=== PATIENT | female | born 1970 | race Hispanic/Latino ===

== ENCOUNTER 2017-08-19 10:36 | Emergency (ER) | payer BC ==
[2017-08-19 11:01] LABS: #Basophils 0.1 thou/uL (0.0-0.2); #Eosinphils 0.1 thou/uL (0.0-0.7); #Monocytes 0.4 thou/uL (0.11-0.59); #Neutrophils 4.3 thou/uL (1.40-6.50); %Basophils 0.7 % (0.0-1.0); %Eosinophils 1.7 % (0.0-10.0); %Lymphocytes 38.1 % (21.0-51.0); %Monocytes 5.4 % (0.0-10.0); %Neutrophils 54.1 % (42.0-75.0); Hemoglobin 15.9 g/dL (12.0-16.0); Mean Corpuscular Hemoglobin 32.2 pg (27.0-31.0); Mean Corpuscular Volume 94.6 fl (81.0-99.0); Mean Platelet Volume 6.8 fL (7.4-10.4); Platelet Count 265 thou/uL (130-400); RBC Distribution Width 12.6 % (11.5-14.5); Red Blood Cell (RBC) Count 4.94 mill/uL (4.20-5.40); White Blood Cell (WBC) Count 7.9 thou/uL (4.8-10.8)
[2017-08-19 11:12] LABS: ALT (SGPT) 38 U/L (8-55); AST (SGOT) 41 U/L (5-34); Albumin 4.1 g/dL (3.5-5.0); Alkaline Phosphatase 101 U/L (40-150); Anion Gap 9 mmol/L (10-20); BUN (Urea Nitrogen) 11 mg/dL (7.0-18.7); Bilirubin, Total 0.6 mg/dL (0.2-1.2); Calc. Creatinine Clearance 0 mL/min (70-130); Calcium 9.5 mg/dL (7.8-10.44); Carbon Dioxide 28 mmol/L (22-29); Chloride 106 mmol/L (98-107); Estimated GFR-MDRD 87; Globulin 3.9 g/dL (2.4-3.5); Glucose 85 mg/dL (70-105); Sodium 139 mmol/L (136-145)
[2017-08-19] MEDS ORDERED: Ketorolac Tromethamine 30 MG/ML VIAL ONE (13:33)
[2017-08-19 13:56] LABS: Bilirubin Negative (Negative); Blood, Urine Large (Negative); Clarity CLOUDY (Clear); Glucose, Urine (Dipstick) Negative (Negative); Leukocyte Small (Negative); Nitrite Negative (Negative); Protein, Urine (Dipstick) Trace mg/dL (Neg-Trace); Specific Gravity, Urine 1.019 (1.002-1.036); Urobilinogen 0.2 mg/dL (0.2-1.0); pH, Urine 6.5 (5.0-9.0)
[2017-08-19 14:12] LABS: Bacteria/HPF 1+ HPF (None Seen); Hyaline Casts/LPF 0-3 HYALINE CAST LPF (0-3 Hyaline); Pathc Cast-AUWi Flag 0.72 (0-2.49)
[2017-08-19 14:13] LABS: Yeast-AUWi Flag 47.9 (0-25.0)
[2017-08-19 14:26] LABS: RBC/HPF 0-3 HPF (0-3)
[2017-08-19 14:27] LABS: Yeast-All Forms None Seen HPF (None Seen)
--- NOTE | 2017-08-19 15:08 | ULT ---
PELVIC ULTRASOUND TRANSABDOMINAL: Date: 08/19/17 Transvaginal ultrasound declined by the patient. This does limit the evaluation. Doppler color flow i maging performed. INDICATION: Pelvic pain, vaginal bleeding. FINDINGS: Prominence of the endometrium is noted at 1.0 cm in thickness. Uterus is mildly prominent in volume, measuring 9.0 cm in length. Doppler evaluation performed, which reveals flow to each ovary. No signif icant free pelvic fluid. Focal hypoechoic region of the left adnexa measures between 3-4 cm in size, which suggests an ovarian cyst, larger than typical for physiologic cyst. IMPRESSION: 1. Prominent sized left adnexal cyst. Six week follow-up pelvic ultrasound is recommended to confirm resolution. 2. Borderline size endometrium. If the patient is postmenopausal, this would be considered abnormal. Otherwise, reassessment at the six week follow-up should be performed to confirm expected resolution for physiologic change. CODE T. POS: [facility]
--- NOTE | 2017-08-19 15:30 | CT ---
NONCONTRAST HEAD CT: Date: 08/19/17 HISTORY: Headache. Worsening pain. COMPARISON: 01/07/15. TECHNIQUE: A noncontrast head CT is performed from the skull base to the skull vertex. FINDINGS: No parenchymal hemorrhage or extra-axial hematoma. No midline shift. Basilar cisterns are patent. Bra in volume is age-appropriate. Cortical restrepo-white matter differentiation is preserved. Ventricles and sulci are patent and symmetric. Calvarium is intact. Adequate aeration of the sinuses and mastoid ai r cells. IMPRESSION: No acute intracranial process. POS: [facility]
== END 2017-08-19 16:13 | disposition home or self-care (01) ==
LOC: ERS 10:36
DX: N95.0 Postmenopausal bleeding (principal); R51 Headache; K90.0 Celiac disease; M81.0 Age-related osteoporosis without current pathological fracture
CPT/HCPCS: 36415; 70450; 76856; 80053; 81003; 81015; 85025; 86850; 86900; 86901; 93976; 96361; 96374; J1885

== ENCOUNTER 2017-08-30 09:27 | Outpatient (CLI) | payer BC | END 2017-08-30 09:28 | disposition home or self-care (01) | LOC: BICMAMMO 09:27 | PROVIDERS: ATTEND Family Medicine | DX: N64.4 Mastodynia (principal) | CPT/HCPCS: 77066; G0279 ==

== ENCOUNTER 2018-01-04 10:38 | Emergency (ER) | payer BC ==
[2018-01-04 11:03] LABS: #Basophils 0.1 thou/uL (0.0-0.2); #Eosinphils 0.1 thou/uL (0.0-0.7); #Lymphocytes 3.2 thou/uL (1.20-3.40); #Monocytes 0.4 thou/uL (0.11-0.59); %Basophils 0.9 % (0.0-1.0); %Eosinophils 2.1 % (0.0-10.0); %Lymphocytes 47.6 % (21.0-51.0); %Monocytes 5.6 % (0.0-10.0); %Neutrophils 43.9 % (42.0-75.0); Mean Corpuscular HGB CONC 35.6 g/dL (32.0-36.0); Mean Corpuscular Hemoglobin 31.8 pg (27.0-31.0); Mean Corpuscular Volume 89.3 fL (78.0-98.0); Mean Platelet Volume 6.1 fL (7.4-10.4); Platelet Count 292 thou/uL (130-400); RBC Distribution Width 12.5 % (11.5-14.5); Red Blood Cell (RBC) Count 5.04 mill/uL (4.20-5.40); White Blood Cell (WBC) Count 6.8 thou/uL (4.8-10.8)
[2018-01-04 11:13] LABS: BHCG - Serum Negative (NEGATIVE); Pregs Control Background? CLEAR/WHITE (CLR/WHITE); Pregs Control Bar Appear? YES (CONTROL BAR)
[2018-01-04 11:38] LABS: Bilirubin Negative (Negative); Clarity Cloudy (Clear); Glucose, Urine (Dipstick) Negative (Negative); Protein, Urine (Dipstick) > or equal to 300 mg/dL (Neg-Trace)
[2018-01-04 11:39] LABS: Nitrite Unable to Interpret (Negative); Urobilinogen UNABLE TO INTERPRET mg/dL (0.2-1.0)
[2018-01-04 11:40] LABS: Blood, Urine Large (Negative); Leukocyte Small (Negative)
[2018-01-04 11:43] LABS: Specific Gravity, Urine 1.017 (1.002-1.036); pH, Urine 7.5 (5.0-9.0)
[2018-01-04 11:45] LABS: RBC/HPF GREATER THAN 50-TNTC HPF (0-3)
[2018-01-04 11:46] LABS: Bacteria/HPF 1+ HPF (None Seen); Hyaline Casts/LPF NONE SEEN LPF (0-3 Hyaline)
[2018-01-04 12:08] LABS: Prothrombin Time 13.2 SEC (12.0-14.7)
[2018-01-04 12:23] LABS: Anion Gap 8 mmol/L (10-20); BUN (Urea Nitrogen) 8 mg/dL (7.0-18.7); Calc. Creatinine Clearance 0 mL/min (70-130); Calcium 8.9 mg/dL (7.8-10.44); Carbon Dioxide 25 mmol/L (22-29); Chloride 109 mmol/L (98-107); Estimated GFR-MDRD Greater than 90; Glucose 83 mg/dL (70-105); Potassium 3.6 mmol/L (3.5-5.1); Sodium 138 mmol/L (136-145)
--- NOTE | 2018-01-04 13:18 | ULT ---
PELVIC ULTRASOUND WITH DOPPLER: (TRANSABDOMINAL, TRANSVAGINAL, ROME SCALE, COLOR FLOW AND SPECTRAL DOPPLER) Date: 01/04/18 HISTORY: Vaginal bleeding and left-sided pelvic pain. FINDINGS: The uterus measures 10.0 x 4.7 x 5.9 cm without focal mass or endometrial fluid. The endometrium jaky ures 2.0 cm in thickness. The right ovary measures 2.6 x 1.0 x 1.6 cm and the left ovary measures 1.7 x 1.5 x 1.8 cm. No adnexa l mass or free fluid in the cul-de-sac seen. Nabothian cysts are present in the cervix. Flow is demon strated to both ovaries. IMPRESSION: Endometrial thickness is 2.0 cm, otherwise unremarkable exam. POS: [facility]
--- NOTE | 2018-01-04 14:49 | CT ---
CT ABDOMEN AND PELVIS: Date: 01/04/18 HISTORY: Abdominal pain, vaginal bleeding. FINDINGS: Comparison made with exams of 09/10/16 and 07/21/11. The lung bases are clear. There is fatty infiltration of the liver. No hepatic mass is seen. No calci fied gallstones are noted. The pancreas, adrenal glands, and kidneys are normal. The spleen measures 14.0 cm in length. A small hiatal hernia is present. No free air or free fluid is seen in the abdomen or pelvis. A periportal lymph node measuring 9.0 mm in short axis diameter is seen. No mesenteric or retroperitoneal lymphadenopathy is seen. There is no evidence of aneurysmal dilatation of the abdominal aorta. There is colonic diverticulosis. No eviden ce of diverticulitis is seen. Uterus and ovaries are noted. There is no evidence of aneurysmal dilata tion of the abdominal aorta. There are degenerative changes in the spine. No abnormally distended flu id-filled appendix is seen IMPRESSION: 1. Fatty liver. 2. Mild splenomegaly. 3. Small hiatal hernia. 4. Colonic diverticulosis. POS: [facility]
== END 2018-01-04 13:39 | disposition home or self-care (01) ==
LOC: ERS 10:38
DX: N93.8 Other specified abnormal uterine and vaginal bleeding (principal); N39.0 Urinary tract infection, site not specified; M81.0 Age-related osteoporosis without current pathological fracture
CPT/HCPCS: 36415; 74177; 76856; 80048; 81003; 81015; 84703; 85025; 85610; 96361; 96374; J2270

== ENCOUNTER 2018-06-10 13:02 | Emergency (ER) | payer BC ==
[2018-06-10] MEDS ORDERED: Dexamethasone 4 mg/ml Vial ONE (13:28)
[2018-06-10 13:53] LABS: Bilirubin Negative (Negative); Blood, Urine Large (Negative); Clarity CLOUDY (Clear); Glucose, Urine (Dipstick) Negative (Negative); Leukocyte Large (Negative); Nitrite Positive (Negative); Protein, Urine (Dipstick) 30 mg/dL (Neg-Trace); Specific Gravity, Urine 1.015 (1.002-1.036); pH, Urine 6.5 (5.0-9.0)
[2018-06-10 13:56] LABS: Bacteria/HPF 4+ HPF (None Seen); Hyaline Casts/LPF 0-3 HYALINE CAST LPF (0-3 Hyaline); Pathc Cast-AUWi Flag 0.37 (0-2.49); RBC/HPF GREATER THAN 50-TNTC HPF (0-3)
[2018-06-10 13:57] LABS: #Basophils 0.1 thou/uL (0.0-0.2); #Eosinphils 0.1 thou/uL (0.0-0.7); #Lymphocytes 2.6 thou/uL (1.20-3.40); #Monocytes 0.5 thou/uL (0.11-0.59); #Neutrophils 4.8 thou/uL (1.40-6.50); %Basophils 0.7 % (0.0-1.0); %Eosinophils 1.6 % (0.0-10.0); %Lymphocytes 32.1 % (21.0-51.0); %Monocytes 5.8 % (0.0-10.0); %Neutrophils 59.8 % (42.0-75.0); Hemoglobin 16.7 g/dL (12.0-16.0); Mean Corpuscular HGB CONC 34.1 g/dL (32.0-36.0); Mean Corpuscular Hemoglobin 30.9 pg (27.0-31.0); Mean Corpuscular Volume 90.7 fL (78.0-98.0); Mean Platelet Volume 6.7 fL (7.4-10.4); Platelet Count 252 thou/uL (130-400); RBC Distribution Width 12.5 % (11.5-14.5); White Blood Cell (WBC) Count 8.1 thou/uL (4.8-10.8)
[2018-06-10 14:18] LABS: ALT (SGPT) 23 U/L (8-55); AST (SGOT) 25 U/L (5-34); Albumin 4.2 g/dL (3.5-5.0); Alkaline Phosphatase 129 U/L (40-150); Anion Gap 15 mmol/L (10-20); BUN (Urea Nitrogen) 9 mg/dL (7.0-18.7); Bilirubin, Total 0.8 mg/dL (0.2-1.2); Calc. Creatinine Clearance 0 mL/min (70-130); Calcium 9.8 mg/dL (7.8-10.44); Carbon Dioxide 23 mmol/L (22-29); Chloride 105 mmol/L (98-107); Estimated GFR-MDRD 80; Globulin 4.2 g/dL (2.4-3.5); Glucose 88 mg/dL (70-105); Potassium 3.5 mmol/L (3.5-5.1); Protein, Total 8.4 g/dL (6.0-8.3); Sodium 139 mmol/L (136-145)
--- NOTE | 2018-06-10 15:55 | CT ---
CT LUMBAR SPINE NONCONTRAST 06/10/18 at 1:48 p.m. HISTORY: 47-year-old female with low back pain and right lumbar radiculopathy. FINDINGS: Moderate vacuum joint phenomenon, mild osteophytosis and moderate sclerosis at bilateral Si joints, s ymmetrically. Five nonribbearing lumbar type vertebrae. Vertebral body heights and disc spaces are maintained. No s pondylolysis or spondylolisthesis. No high grade neural foraminal stenosis or adenike nerve root imping ement, at any level. Spinal canal is congenitally slightly small in caliber on a developmental basis due to congenitally short pedicles, especially at the lower levels, and especially at L4-5 and L5. N o high grade disc space narrowing any level. No scoliosis. Mild disc bulge at L4-5 with mild to moder ate lateral recess stenosis bilaterally at that level. No high grade degenerative facet changes. IMPRESSION: 1. Moderate osteoarthrosis of the bilateral sacroiliac joints. 2. No high grade lumbar spondylosis. 3. Central spinal canal stenosis at L5 and L4-5 with lateral recess stenosis there, mostly on a developmental basis plus minimal disc bulge. 4. Otherwise no major pathology in the rest of the lumbar spine. POS: [facility]
== END 2018-06-10 14:45 | disposition home or self-care (01) ==
LOC: ERS 13:02
DX: M51.36 Other intervertebral disc degeneration, lumbar region (principal); N30.00 Acute cystitis without hematuria; M81.0 Age-related osteoporosis without current pathological fracture
CPT/HCPCS: 72131; 80053; 81003; 81015; 85025; 87077; 87086; 87186; 96374; J1100

== ENCOUNTER 2018-06-22 20:27 | Emergency (ER) | payer BC ==
[2018-06-22 20:52] LABS: #Basophils 0.1 thou/uL (0.0-0.2); #Eosinphils 0.4 thou/uL (0.0-0.7); #Lymphocytes 3.3 thou/uL (1.20-3.40); #Monocytes 0.6 thou/uL (0.11-0.59); #Neutrophils 4.6 thou/uL (1.40-6.50); %Basophils 0.6 % (0.0-1.0); %Eosinophils 4.3 % (0.0-10.0); %Lymphocytes 36.8 % (21.0-51.0); %Monocytes 6.3 % (0.0-10.0); %Neutrophils 52.1 % (42.0-75.0); Hemoglobin 15.6 g/dL (12.0-16.0); Mean Corpuscular HGB CONC 33.8 g/dL (32.0-36.0); Mean Corpuscular Hemoglobin 30.6 pg (27.0-31.0); Mean Corpuscular Volume 90.4 fL (78.0-98.0); Mean Platelet Volume 6.9 fL (7.4-10.4); Platelet Count 252 thou/uL (130-400); RBC Distribution Width 12.4 % (11.5-14.5); White Blood Cell (WBC) Count 8.9 thou/uL (4.8-10.8)
[2018-06-22] MEDS ORDERED: Ketorolac Tromethamine 30 MG/ML VIAL ONE (20:59)
[2018-06-22 21:00] LABS: BHCG - Serum Negative (NEGATIVE); Pregs Control Background? CLEAR/WHITE (CLR/WHITE); Pregs Control Bar Appear? YES (CONTROL BAR)
--- NOTE | 2018-06-22 21:28 | RAD ---
AP VIEW CHEST: 06/22/18 HISTORY: Chest pain. AP view chest obtained on 06/22/18. Comparison made to previous exam from 10/12/11. AP view chest demonstrates the lungs to be well aerated. No evidence of active intrathoracic disease seen. No evidence of effusions, pneumonia or pneumothorax seen. IMPRESSION: Unremarkable AP view chest. POS: [facility]
[2018-06-22 21:40] LABS: ALT (SGPT) 30 U/L (8-55); AST (SGOT) 29 U/L (5-34); Alkaline Phosphatase 116 U/L (40-150); Anion Gap 14 mmol/L (10-20); BUN (Urea Nitrogen) 9 mg/dL (7.0-18.7); Bilirubin, Total 0.5 mg/dL (0.2-1.2); CK (CPK) 65 U/L (29-168); Calc. Creatinine Clearance 0 mL/min (70-130); Calcium 9.4 mg/dL (7.8-10.44); Carbon Dioxide 26 mmol/L (22-29); Chloride 105 mmol/L (98-107); Estimated GFR-MDRD 78; Globulin 3.8 g/dL (2.4-3.5); Glucose 90 mg/dL (70-105); Potassium 3.5 mmol/L (3.5-5.1); Protein, Total 7.8 g/dL (6.0-8.3); Sodium 141 mmol/L (136-145)
== END 2018-06-22 22:17 | disposition home or self-care (01) ==
LOC: ERS 20:27
DX: R07.89 Other chest pain (principal); M81.0 Age-related osteoporosis without current pathological fracture
CPT/HCPCS: 71045; 80053; 82550; 84484; 84703; 85025; 93005; 96374; J1885

== ENCOUNTER 2018-08-03 16:48 | Emergency (ER) | payer BC ==
[2018-08-03] MEDS ORDERED: Acetaminophen 325 MG TAB ONE (18:53)
--- NOTE | 2018-08-03 19:19 | RAD ---
LEFT HIP TWO VIEW 08/03/18 HISTORY: Pain. COMPARISON: None. FINDINGS: No fracture. No malalignment. Obturator ring is intact. Soft tissues are unremarkable. IMPRESSION: No acute fracture or malalignment. POS: [facility]
== END 2018-08-03 20:30 | disposition home or self-care (01) ==
LOC: ERS 16:48
DX: M25.552 Pain in left hip (principal); M81.0 Age-related osteoporosis without current pathological fracture

== ENCOUNTER 2018-10-25 08:08 | Outpatient (CLI) | payer BC ==
--- NOTE | 2018-10-25 10:14 | RAD ---
LUMBAR SPINE TWO VIEWS: HISTORY: Low back pain. COMPARISON: Radiographs from 2015. FINDINGS: There are five vxi-foy-pikabjr lumbar-type vertebrae. No acute fracture or malalignment. No listhes is. No significant joint or disk space narrowing. The paraspinal soft tissues are unremarkable. IMPRESSION: Normal examination of the lumbar spine. POS: [facility]
== END 2018-10-25 08:09 | disposition home or self-care (01) ==
LOC: BICRAD 08:08
PROVIDERS: ATTEND Family Medicine
DX: M54.5 Low back pain (principal)
CPT/HCPCS: 72100

== ENCOUNTER 2018-11-17 12:28 | Outpatient (CLI) | payer BC ==
--- NOTE | 2018-11-17 13:48 | MRI ---
MRI Lumbar Spine Noncontrast: HISTORY: Low back pain with pain and numbness radiating to legs. Symptoms been present for approximately 4 mon ths. COMPARISON: CT lumbar spine on 06/10/2018. FINDINGS: The visualized retroperitoneal structures demonstrate a normal appearance. Conus medullaris is normal in morphology and terminates at the L1 level. L1-2: There is no disc bulge or disc herniation. Central spinal canal and neural foramina are patent. L2-3: There is no disc bulge or disc herniation. Central spinal canal and neural foramina are patent. L3-4: There is no disc bulge or disc herniation. Central spinal canal and neural foramina are patent. There are facet degenerative changes on the left at this level. There is mild edema within the facets on fluid sensitive sequence likely related to the degenerative changes. L4-5: There is no disc bulge or disc herniation. Central spinal canal and neural foramina are patent. L5-S1: There is no disc bulge or disc herniation. Central spinal canal and neural foramina are patent . Mild facet degenerative changes are seen. IMPRESSION: 1. No significant central canal or neural foraminal narrowing is seen at any level. 2. Facet degenerative changes with edema seen within the facets on the left at the L3-4 level likely attributable to the degenerative changes.
== END 2018-11-17 12:29 | disposition home or self-care (01) ==
LOC: BICMRI 12:28
PROVIDERS: ATTEND Family Medicine
DX: M54.5 Low back pain (principal); M47.816 Spondylosis without myelopathy or radiculopathy, lumbar region; R60.0 Localized edema
CPT/HCPCS: 72148

== ENCOUNTER 2019-06-06 12:46 | Emergency (ER) | payer BC ==
[2019-06-06 13:25] LABS: Bacteria/HPF 3+ HPF (None Seen); Bilirubin Negative (Negative); Blood, Urine 1+ (Negative); Clarity Turbid (Clear); Glucose, Urine (Dipstick) Normal (Negative); Leukocyte 500 Leu/uL (Negative); Nitrite 2+ (Negative); Protein, Urine (Dipstick) 10 mg/dL (Neg-Trace); Urobilinogen Normal mg/dL (Less than 2); WBC/HPF 21-50 HPF (0-3)
== END 2019-06-06 14:42 | disposition home or self-care (01) ==
LOC: ERS 12:46
DX: S39.012A Strain of muscle, fascia and tendon of lower back, initial encounter (principal); N39.0 Urinary tract infection, site not specified; F91.3 Oppositional defiant disorder; X58.XXXA Exposure to other specified factors, initial encounter
CPT/HCPCS: 81003; 81015; 99283

== ENCOUNTER 2019-06-23 17:50 | Emergency (ER) | payer BC | END 2019-06-23 18:54 | disposition home or self-care (01) | LOC: ERS 17:50 | DX: B34.9 Viral infection, unspecified (principal); M81.0 Age-related osteoporosis without current pathological fracture | CPT/HCPCS: 87081; 87430; 87804; 99283 ==

== ENCOUNTER 2019-07-24 10:10 | Emergency (ER) | payer BC ==
[2019-07-24 10:42] LABS: Bilirubin Moderate (Negative); Blood, Urine Large (Negative); Glucose, Urine (Dipstick) Negative (Negative); Leukocyte Negative (Negative); Protein, Urine (Dipstick) > or equal to 300 mg/dL (Neg-Trace)
[2019-07-24 10:44] LABS: Clarity Cloudy (Clear); Nitrite Negative (Negative)
[2019-07-24 10:46] LABS: #Basophils 0.1 thou/uL (0.0-0.2); #Eosinphils 0.1 thou/uL (0.0-0.7); #Lymphocytes 2.1 thou/uL (1.20-3.40); #Monocytes 0.4 thou/uL (0.11-0.59); #Neutrophils 3.8 thou/uL (1.40-6.50); %Basophils 1.7 % (0.0-1.0); %Eosinophils 1.6 % (0.0-10.0); %Lymphocytes 32.4 % (21.0-51.0); %Monocytes 6.5 % (0.0-10.0); %Neutrophils 57.8 % (42.0-75.0); Hemoglobin 16.5 g/dL (12.0-16.0); Mean Corpuscular Hemoglobin 30.7 pg (27.0-31.0); Mean Corpuscular Volume 93.1 fL (78.0-98.0); Mean Platelet Volume 6.9 fL (7.4-10.4); Platelet Count 269 thou/uL (130-400); Red Blood Cell (RBC) Count 5.37 mill/uL (4.20-5.40); White Blood Cell (WBC) Count 6.6 thou/uL (4.8-10.8)
[2019-07-24 10:48] LABS: RBC/HPF Greater than 50 HPF (0-3)
[2019-07-24 10:49] LABS: Bacteria/HPF 1+ HPF (None Seen)
[2019-07-24 10:59] LABS: BHCG - Serum Negative (NEGATIVE); Pregs Control Background? CLEAR/WHITE (CLR/WHITE); Pregs Control Bar Appear? YES (CONTROL BAR)
--- NOTE | 2019-07-24 11:52 | CT ---
Exam: Abdomen CT without contrast Pelvic CT without contrast HISTORY: Hematuria COMPARISON: 08/27/2026 FINDINGS: Abdomen CT: Lung bases:Clear Heart size: Normal heart size. No significant pericardial fluid. Aorta: Visualized aorta has a normal caliber. No periaortic fat stranding Solid organs: Limited evaluation of the solid organs by the absence of IV contrast. There is heteroge neous attenuation of the liver compatible with areas of fatty sparing in fatty infiltration. There is atrophy of the head of the pancreas and to lesser extent the body of the pancreas. Grossly the spl een and adrenal glands are unremarkable. Lymph nodes: Nonspecific mildly enlarged. Pancreatic lymph nodes. 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 Gallbladder: Unremarkable Mesentery: No mass, lymphadenopathy, free air or free fluid. Scattered nonspecific abdominal mesenter ic lymph nodes. Kidneys: Nonobstructing punctate calcification in in the right renal pelvis. Bilaterally no hydroneph rosis or perinephric fat stranding. Bilateral ureters have a normal caliber. No hydroureter, periureteral fat stranding or ureterolithiasis. Alimentary canal: Limited evaluation by the absence of oral contrast. No evidence of small bowel obst ruction. Unremarkable ileocecal junction. Scattered fecal material in a nondistended, nondilated colon. Occasional diverticulum. No diverticulitis. Appendix is not appreciated. Nevertheless, no infl ammation at the cecal apex. CT PELVIS: No mass, adenopathy, free air or free fluid. Uterus and right adnexal are grossly unremarkable. Sple lynda hypodensity emanating from the left adnexa measuring 2.0 x 1.9 cm compatible with a slightly complex left ovarian follicle. Urinary bladder: Unremarkable. Osseous structures: No lytic or blastic lesions IMPRESSION: 1. Nonobstructing punctate calcification in the right renal pelvis. Bilaterally no obstructive uropat hy. 2. Complex left ovarian follicle. Follow-up ultrasound in 6 weeks to ensure resolution. 3. Nonspecific peripancreatic lymphadenopathy. Correlate clinically.
[2019-07-24 13:07] LABS: ALT (SGPT) 18 U/L (8-55); AST (SGOT) 22 U/L (5-34); Albumin 3.9 g/dL (3.5-5.0); Alkaline Phosphatase 111 U/L (40-110); Anion Gap 13 mmol/L (10-20); BUN (Urea Nitrogen) 9 mg/dL (7.0-18.7); Bilirubin, Total 0.8 mg/dL (0.2-1.2); Calc. Creatinine Clearance 0 mL/min (70-130); Carbon Dioxide 27 mmol/L (22-29); Chloride 105 mmol/L (98-107); Estimated GFR-MDRD 73; Globulin 3.4 g/dL (2.4-3.5); Glucose 87 mg/dL (70-105); Potassium 3.7 mmol/L (3.5-5.1); Protein, Total 7.3 g/dL (6.0-8.3); Sodium 141 mmol/L (136-145)
[2019-07-24 13:18] LABS: Calcium 9.1 mg/dL (7.8-10.44)
== END 2019-07-24 13:26 | disposition home or self-care (01) ==
LOC: ERS 10:10
DX: N83.202 Unspecified ovarian cyst, left side (principal); N93.9 Abnormal uterine and vaginal bleeding, unspecified; R59.0 Localized enlarged lymph nodes; M81.0 Age-related osteoporosis without current pathological fracture
CPT/HCPCS: 36415; 74176; 80053; 81003; 81015; 83690; 84703; 85025

== ENCOUNTER 2019-07-25 21:38 | Emergency (ER) | payer BC ==
[2019-07-25 22:08] LABS: Bilirubin Negative (Negative); Blood, Urine 3+ (Negative); Clarity Extra Turbid (Clear); Glucose, Urine (Dipstick) Normal (Negative); Leukocyte 25 Leu/uL (Negative); Nitrite Negative (Negative); Protein, Urine (Dipstick) 50 mg/dL (Neg-Trace); RBC/HPF Greater than 50 HPF (0-3); Urobilinogen Normal mg/dL (Less than 2)
[2019-07-25 22:18] LABS: Bacteria/HPF 2+ HPF (None Seen)
[2019-07-25] MEDS ORDERED: Morphine 4 MG/ML VIAL ONE (23:01)
[2019-07-25] MEDS ORDERED: Ondansetron PF 4 MG/2 ML Vial ONE (23:01)
[2019-07-25 23:30] LABS: #Eosinphils 0.1 thou/uL (0.0-0.7); #Lymphocytes 2.7 thou/uL (1.20-3.40); #Monocytes 0.6 thou/uL (0.11-0.59); #Neutrophils 4.9 thou/uL (1.40-6.50); %Eosinophils 1.3 % (0.0-10.0); %Lymphocytes 32.9 % (21.0-51.0); %Monocytes 6.9 % (0.0-10.0); Hemoglobin 15.2 g/dL (12.0-16.0); Mean Corpuscular Hemoglobin 31.1 pg (27.0-31.0); Mean Corpuscular Volume 91.7 fL (78.0-98.0); Mean Platelet Volume 6.7 fL (7.4-10.4); Platelet Count 253 thou/uL (130-400); RBC Distribution Width 12.8 % (11.5-14.5); Red Blood Cell (RBC) Count 4.87 mill/uL (4.20-5.40); White Blood Cell (WBC) Count 8.3 thou/uL (4.8-10.8)
[2019-07-25 23:55] LABS: Pregnancy Test - Urine (BHCG) Negative (Negative); Pregu Control Background? CLEAR/WHITE (CLR/WHITE); Pregu Control Bar Appear? YES (CONTROL BAR); Specific Gravity 1.015 (1.002-1.036)
[2019-07-25 23:56] LABS: ALT (SGPT) 16 U/L (8-55); AST (SGOT) 21 U/L (5-34); Albumin 3.7 g/dL (3.5-5.0); Alkaline Phosphatase 98 U/L (40-110); Anion Gap 11 mmol/L (10-20); BUN (Urea Nitrogen) 10 mg/dL (7.0-18.7); Bilirubin, Total 0.4 mg/dL (0.2-1.2); Calc. Creatinine Clearance 0 mL/min (70-130); Calcium 9.2 mg/dL (7.8-10.44); Carbon Dioxide 25 mmol/L (22-29); Chloride 106 mmol/L (98-107); Estimated GFR-MDRD 85; Globulin 3.4 g/dL (2.4-3.5); Glucose 89 mg/dL (70-105); Lipase 16 U/L (8-78); Potassium 3.6 mmol/L (3.5-5.1); Protein, Total 7.1 g/dL (6.0-8.3); Sodium 138 mmol/L (136-145)
== END 2019-07-26 01:31 | disposition home or self-care (01) ==
LOC: ERS 21:38
DX: N93.9 Abnormal uterine and vaginal bleeding, unspecified (principal); R10.811 Right upper quadrant abdominal tenderness; R10.817 Generalized abdominal tenderness; M81.0 Age-related osteoporosis without current pathological fracture
CPT/HCPCS: 36415; 80053; 81003; 81015; 81025; 83690; 85025; 96374; 96375; J2270; J2405

== ENCOUNTER 2019-11-01 15:57 | Observation (INO) | payer BC ==
--- NOTE | 2019-11-01 16:23 | RAD ---
EXAM: CHEST ONE VIEW PORTABLE: 11/01/19 HISTORY: Chest pain. COMPARISON: 06/22/18. FINDINGS: Heart size is normal. The lungs are clear. No confluent pneumonia, overt edema, pleural effusion or o ther acute process. IMPRESSION: No acute intrathoracic disease. Stable exam. POS: [facility]
[2019-11-01] MEDS ORDERED: Clopidogrel Bisulfate 75 MG TAB ONE (16:43)
[2019-11-01] MEDS ORDERED: Acetaminophen 500 MG TAB ONE (17:11)
[2019-11-01 17:18] LABS: #Basophils 0.1 thou/uL (0.0-0.2); #Eosinphils 0.1 thou/uL (0.0-0.7); #Lymphocytes 2.5 thou/uL (1.20-3.40); #Monocytes 0.5 thou/uL (0.11-0.59); #Neutrophils 4.9 thou/uL (1.40-6.50); %Basophils 0.7 % (0.0-1.0); %Eosinophils 1.7 % (0.0-10.0); %Lymphocytes 30.5 % (21.0-51.0); %Monocytes 6.6 % (0.0-10.0); %Neutrophils 60.4 % (42.0-75.0); Hemoglobin 15.6 g/dL (12.0-16.0); Mean Corpuscular HGB CONC 34.8 g/dL (32.0-36.0); Mean Corpuscular Hemoglobin 31.7 pg (27.0-31.0); Mean Platelet Volume 6.9 fL (7.4-10.4); Platelet Count 257 thou/uL (130-400); RBC Distribution Width 12.6 % (11.5-14.5); Red Blood Cell (RBC) Count 4.91 mill/uL (4.20-5.40); White Blood Cell (WBC) Count 8.1 thou/uL (4.8-10.8)
[2019-11-01 17:47] LABS: ALT (SGPT) 22 U/L (8-55); AST (SGOT) 25 U/L (5-34); Albumin 3.7 g/dL (3.5-5.0); Alkaline Phosphatase 96 U/L (40-110); Anion Gap 10 mmol/L (10-20); BUN (Urea Nitrogen) 10 mg/dL (7.0-18.7); Bilirubin, Total 0.4 mg/dL (0.2-1.2); Calc. Creatinine Clearance 0 mL/min (70-130); Calcium 8.7 mg/dL (7.8-10.44); Carbon Dioxide 26 mmol/L (22-29); Chloride 105 mmol/L (98-107); Estimated GFR-MDRD 81; Globulin 3.5 g/dL (2.4-3.5); Glucose 97 mg/dL (70-105); Lipase 18 U/L (8-78); Potassium 3.4 mmol/L (3.5-5.1); Protein, Total 7.2 g/dL (6.0-8.3); Sodium 138 mmol/L (136-145)
[2019-11-01] MEDS ORDERED: Ondansetron PF 4 MG/2 ML Vial ONE (18:08)
--- NOTE | 2019-11-01 18:15 | PDOC.FPRHP ---
- History of Present Illness Chief Complaint: Chest Pain History of Present Illness: Pt is a 49 yo female with no significant cardiac medical history who presents with atypical chest pain. Pain started at rest, initially sharp in nature, and radiated down her L arm at 1300. Episodes of pain are dull as well on the left sternal border. Pain lasts 5 mins then remits for 5 mins. She had chest pain during exam and was being given morphine, nitro paste. Pain reproducible with touch. No cardiac history. Denies tobacco ever but in clinic chart she is noted to have some sort of history. Denies drugs, alcohol. No coronary disease in family. PCP: [facility] - Allergies/Adverse Reactions Allergies Allergy/AdvReac Type Severity Reaction Status Date / Time etodolac [From [facility]] Allergy Verified 11/01/19 22:19 - Home Medications Medication Instructions Recorded Confirmed Type No Known 11/01/19 11/01/19 History - History PMHx: obese, celiac, AUB, fatty liver PSHx: hiatal hernia, appendectomy, bilateral tubal ligation FHx: Father - HTN; Sister - DM Social: denies tobacco, alcohol, drugs, has 7 children - Review of Systems General: denies: fever/chills, weight/appetite/sleep changes Eyes: denies: eye pain, vision changes ENT: denies: nasal congestion, rhinorrhea Respiratory: denies: cough, shortness of breath Cardiovascular: reports: chest pain. denies: palpitation, edema Gastrointestinal: reports: nausea. denies: vomiting, diarrhea, constipation Genitourinary: denies: dysuria, polyuria Skin: denies: rashes, lesions Musculoskeletal: reports: pain. denies: tenderness Neurological: reports: weakness. denies: numbness, seizure Psychological: denies: anxiety, depression - Vital signs BP: 123/94 HR: 81 RR: 20 Tmax: 98.2 Pox: 95% on RA Wt: 108 kg - Physical Exam Constitutional: NAD, awake, alert and oriented HEENT: PERRLA, EOMI Neck: FROM, no JVD Chest: no lesions -Chest: tender to palpation in L chest Heart: RRR, normal S1/S2, pulses present, no edema Lungs: CTAB, no respiratory distress, good air movement Abdomen: soft, non-tender, bowel sounds present Neurological: no focal deficit, CN II-XII intact Skin: no rash/lesions, capillary refill <2 seconds Heme/Lymphatic: no purpura, no petechia Psychiatric: normal mood and affect, good judgment and insight FMR H&P: Results - Labs Result Diagrams: 11/01/19 17:09 11/01/19 17:10 Lab results: WBC 8.1 thou/uL (4.8-10.8) 11/01/19 17:09 Hgb 15.6 g/dL (12.0-16.0) 11/01/19 17:09 Hct 44.7 % (36.0-47.0) 11/01/19 17:09 MCV 91.0 fL (78.0-98.0) 11/01/19 17:09 Plt Count 257 thou/uL (130-400) 11/01/19 17:09 Neutrophils % 60.4 % (42.0-75.0) 11/01/19 17:09 Sodium 138 mmol/L (136-145) 11/01/19 17:10 Potassium 3.4 mmol/L (3.5-5.1) L 11/01/19 17:10 Chloride 105 mmol/L (98-107) 11/01/19 17:10 Carbon Dioxide 26 mmol/L (22-29) 11/01/19 17:10 BUN 10 mg/dL (7.0-18.7) 11/01/19 17:10 Creatinine 0.76 mg/dL (0.6-1.1) 11/01/19 17:10 Glucose 97 mg/dL (70-105) 11/01/19 17:10 Calcium 8.7 mg/dL (7.8-10.44) 11/01/19 17:10 Total Bilirubin 0.4 mg/dL (0.2-1.2) 11/01/19 17:10 AST 25 U/L (5-34) 11/01/19 17:10 ALT 22 U/L (8-55) 11/01/19 17:10 Alkaline Phosphatase 96 U/L (40-110) 11/01/19 17:10 Serum Total Protein 7.2 g/dL (6.0-8.3) 11/01/19 17:10 Albumin 3.7 g/dL (3.5-5.0) 11/01/19 17:10 Lipase 18 U/L (8-78) 11/01/19 17:10 - EKG Interpretation EKG: NSR, V5/V6 flattened twave - Radiology Interpretation Chest x-ray Status: image reviewed by me, report reviewed by me Additional comment: no acute abnormalities FMR H&P: A/P - Problem List (1) Atypical chest pain Current Visit: Yes Status: Acute Code(s): R07.89 - OTHER CHEST PAIN (2) Celiac disease Current Visit: Yes Status: Acute Code(s): K90.0 - CELIAC DISEASE (3) Osteoarthritis Current Visit: Yes Status: Acute Code(s): M19.90 - UNSPECIFIED OSTEOARTHRITIS, UNSPECIFIED SITE - Plan Pt is a 49 yo here for: # Atypical Chest Pain: Heart Score - trend trops, initial negative - lipid panel pending - seems to be more MSK in nature - cardiac stress test tomorrow - plavix given in ED, started on nitro paste, given morphine - tele monitoring # Celiac disease - monitor, no flare Dispo: admit to tele, obs Fluids: SL Diet: NPO midnight Code: Full VTE: lovenox FMR H&P: Upper Level - Plan Date/Time: 11/01/191814 I, Donald Sheppard MD, have evaluated this patient and agree with findings/plan as outlined by athletic training internship resident. Pertinent changes/additions are listed here. Micah Liu is a 49 year old F with a PMH of Fatty liver disease, celiac disease, DJD who was admitted for chest pain. Pain started today, located substernal and left side of chest with radiation to the left arm. Denies associated diaphoresis, n/v, dyspnea. Pain started at rest and patient states that is has been fairly constant and has not improved since admission. Currently, rates it as a 6/10 pain. Minimal improvement with medications given in ED. No known cardiac history and she has never had a stress test done. Denies tobacco, drugs, alcohol use. Denies having pain like this in the past. In the ED, trop was 0.01, EKG showed NSR, HR 97, prolonged QTc. CBC and CMP were unremarkable. CXR showed no acute cardiopulmonary findings. On exam, RRR no murmurs, some ttp over chest well, lungs CTAB. No LE edema. Admitting patient to obs tele for ACS r/o. Continuous cardiac monitoring and trend cardiac enzymes. ASA and statin, nitro prn. Stress test in AM, NPO at 0000. Please see athletic training internship note above for full H&P, which I have reviewed and agree with.
[2019-11-01] MEDS ORDERED: Nitroglycerin 2% Ointment 1 INCH/1 GM Packet ONE (18:31)
[2019-11-01] MEDS ORDERED: Morphine 4 MG/ML VIAL ONE (18:31)
[2019-11-01 22:26] LABS: Troponin I Less than 0.010 ng/mL (< 0.028)
[2019-11-01 22:33] VITALS: BMI 46.1
[2019-11-02 01:49] LABS: Troponin I Less than 0.010 ng/mL (< 0.028)
[2019-11-02 04:41] LABS: Anion Gap 10 mmol/L (10-20); BUN (Urea Nitrogen) 9 mg/dL (7.0-18.7); Calc. Creatinine Clearance 157 mL/min (70-130); Calcium 8.7 mg/dL (7.8-10.44); Carbon Dioxide 26 mmol/L (22-29); Cardiac Risk 4.2 (Less than 4.5); Chloride 106 mmol/L (98-107); Cholesterol 189 mg/dl (< 200 Desired); Estimated GFR-MDRD 86; Glucose 111 mg/dL (70-105); HDL Cholesterol 45 mg/dL (>60 Neg Risk); LDL Cholesterol, Calculated 126 mg/dL; Potassium 3.3 mmol/L (3.5-5.1); Sodium 139 mmol/L (136-145); Triglycerides 90 mg/dL (Less than 150)
--- NOTE | 2019-11-02 06:45 | PDOC.FM ---
- Subjective Subjective: Pt complaining of epigastric and chest pain this morning. Causing nausea and dyspepsia. No events on tele monitoring overnight. Pt notes hx of gastric ulcer in the past but denies it feeling similar to her current episode. Discussed plan for stress test today and pt is in agreement. - Objective Vital Signs & Weight: Vital Signs (12 hours) Temp Pulse Resp BP Pulse Ox 11/02/19 03:18 97.9 F 63 18 93/50 L 97 11/01/19 21:05 98.0 F 78 18 126/61 96 Weight Weight 106.503 kg I&O: 10/31/19 11/01/19 11/02/19 06:59 06:59 06:59 Intake Total 120 Balance 120 Result Diagrams: 11/01/19 17:09 11/02/19 00:36 Phys Exam - Physical Examination Constitutional: NAD HEENT: moist MMs, sclera anicteric Respiratory: no wheezing, clear to auscultation bilateral Cardiovascular: RRR, no significant murmur Gastrointestinal: soft, non-tender, no distention Musculoskeletal: no edema, pulses present Neurological: moves all 4 limbs Psychiatric: normal affect, A&O x 3 Dx/Plan - Plan Plan: Atypical Chest Pain - Heart Score 4 - Trops neg x3 - lipid panel unimpressive - cardiac stress test today - plavix given in ED, started on nitro paste, given morphine - tele monitoring - 10 year ASCVD: 1.4% Celiac disease - stable Fluids: SL Diet: NPO Code: Full VTE: lovenox Dispo: Tele obs for atypical chest pain and ACS r/o. I suspect her chest pain is in relation to GERD or gastric ulcer disease, however, she denies this feeling similar to her previous episodes. If stress negative today pt will be discharged later in the day. Medical optimization either way. Addendum - Attending - Attending Attestation Date/Time: 11/02/191831 I personally evaluated the patient and discussed the management with Dr. Keyes I agree with the History, Examination, Assessment and Plan documented above with any addition or exceptions noted below - Patient feeling a little better. States that GI cocktail did help with acid reflux. Afebrile VSS. A/P: 1) Atypical chest pain- stress test negative; suspect GI source; will start on PPI and d/c home. F/u in clinic for further evaluation.
[2019-11-02] MEDS ORDERED: Ondansetron PF 4 MG/2 ML Vial IVP PRN (07:25)
[2019-11-02] MEDS ORDERED: Lidocaine 2% Viscous Solution 10 ML, Aluminum & Magnesium Hydroxide 30 ML SSW SCH (07:30)
[2019-11-02 08:07] VITALS: BP 108/59; TEMP 98.2
[2019-11-02] MEDS ORDERED: Clopidogrel Bisulfate 75 MG TAB PO SCH (09:00)
[2019-11-02] MEDS ORDERED: Enoxaparin Sodium 40 MG/0.4 ML SYRINGE SC SCH (09:00)
[2019-11-02] MEDS ORDERED: Potassium Chloride 20 MEQ TAB PO SCH (09:15)
[2019-11-02] MEDS ORDERED: ADENOSINE 60 MG/20 ML VIAL ONE (09:16)
--- NOTE | 2019-11-02 12:33 | NM ---
EXAM: Nuclear medicine cardiac perfusion examination with ejection fraction HISTORY: Acute chest pain TECHNIQUE: Stress images: 32.9 mCi of technetium 9M sestamibi; Adenosine COMPARISON: None FINDINGS: Tomographic images: No fixed or reversible perfusion defects. Gated images: Normal wall motion and ejection fraction of greater than 70%. EDV: 61 mL LHR: 0.4 IMPRESSION: No perfusion defects with stress
[2019-11-02] MEDS ORDERED: Polyethylene Glycol 3350 17 GM Packet PO PRN (13:08)
--- NOTE | 2019-11-04 11:31 | DIS ---
DATE OF ADMISSION: 11/01/2019 DATE OF DISCHARGE: 11/02/2019 ADMITTING ATTENDING: Sean Adorno MD. DISCHARGE ATTENDING: Cammy Marie MD. RESIDENT: Deepak Keyes DO. CONSULTS: None. PROCEDURES: 1. Cardiolite nuclear medicine stress test on 11/02/2019. Impression: No perfusion defects with stress recognized. 2. Imaging chest x-ray, 11/01/2019. Impression: No acute intrathoracic disease. Stable exam. PRIMARY DIAGNOSIS: Atypical chest pain, gastroesophageal reflux disease versus peptic ulcer disease. SECONDARY DIAGNOSIS: History of celiac disease. DISCHARGE MEDICATIONS: 1. Protonix 40 mg daily. 2. MiraLAX 17 g p.r.n. daily. HISTORY OF PRESENT ILLNESS AND HOSPITAL COURSE: A 49-year-old female with no significant cardiac medical history, presented to the emergency department complaining of atypical chest pain. She stated that the pain started at rest. It was initially sharp in nature and radiated down the left arm. She states that the episodes lasted approximately 5 minutes in length and were somewhat recurrent. In the emergency department, she received morphine and nitroglycerin paste. Initial exam showed her pain to be reproducible with touch. Due to the patient's HEART score of 4, the patient was subsequently admitted to the hospital for cardiac marker trending and subsequent nuclear stress test the following day. The patient was also risk stratified with a fasting lipid panel and glucose monitoring. Her fasting lipid panel was unremarkable and her ASCVD risk score was 1.4%, making her not meet criteria for statin therapy. Her glucose levels also remained essentially within normal range. Her nuclear stress test the following day was negative for any acute or chronic signs of perfusion defects. The following day, the patient continued to complain of her substernal chest pain. She received a GI cocktail and had subsequent improvement with this. She tolerated a full meal of [employer] prior to discharge without any complaints of pain. The patient was instructed to follow up with her primary care doctor to discuss workup for peptic ulcer disease versus GERD. She was discharged on PPI therapy in attempts to both help with diagnostic and therapeutic treatment for this problem. DISCHARGE INSTRUCTIONS: Location: Home. Diet: Regular. Activity: No restrictions. Followup: PCP Dr. Sean Yang within 7 days. Job ID: [id number]
== END 2019-11-02 16:45 | disposition home or self-care (01) ==
LOC: ERS 15:57 → 2NO 18:20
PROVIDERS: ADMIT Family Medicine; ATTEND Family Medicine
DX: R07.89 Other chest pain (principal); K90.0 Celiac disease; M19.90 Unspecified osteoarthritis, unspecified site; E66.9 Obesity, unspecified; Z68.42 Body mass index [BMI] 45.0-49.9, adult; Z79.899 Other long term (current) drug therapy; Z88.8 Allergy status to other drugs, medicaments and biological substances
CPT/HCPCS: 36415; 71045; 78452; 80048; 80053; 80061; 83690; 84484; 85025; 93005; 93017; 94760; 96372; 96374; 96375; 96376; A9500; G0378; J0153; J1650; J2270; J2405

== ENCOUNTER 2020-03-06 14:26 | Outpatient (CLI) | payer BC ==
--- NOTE | 2020-03-06 14:45 | MMO ---
Bilateral MAMMO Bilat Screen [facility]. CLINICAL HISTORY: Patient is 49 years old and is seen for screening. The patient has no family history of breast cancer. The patient has no personal history of cancer. VIEWS: The views performed were: bilateral craniocaudal with tomosynthesis and bilateral mediolateral oblique with tomosynthesis. FILMS COMPARED: The present examination has been compared to prior imaging studies performed at [facility] on 01/28/2014, 08/11/2015, 11/15/2016 and 08/30/2017. This study has been interpreted with the assistance of computer-aided detection. MAMMOGRAM FINDINGS: There are scattered fibroglandular densities. There are no suspicious masses, suspicious calcifications, or new areas of architectural distortion. IMPRESSION: THERE IS NO MAMMOGRAPHIC EVIDENCE OF MALIGNANCY. A ROUTINE FOLLOW-UP MAMMOGRAM IN 1 YEAR IS RECOMMENDED. THE RESULTS OF THIS EXAM WERE SENT TO THE PATIENT. ACR BI-RADS Category 1 - Negative MAMMOGRAPHY NOTE: 1. A negative mammogram report should not delay a biopsy if a dominant of clinically suspicious mass is present. 2. Approximately 10% to 15% of breast cancers are not detected by mammography. 3. Adenosis and dense breasts may obscure an underlying neoplasm. Reported by: HECTOR JONES MD Electonically Signed: [id number]
== END 2020-03-06 14:27 | disposition home or self-care (01) ==
LOC: BICMAMMO 14:26
PROVIDERS: ATTEND Family Medicine
DX: Z12.31 Encounter for screening mammogram for malignant neoplasm of breast (principal)
CPT/HCPCS: 77063; 77067

== ENCOUNTER 2020-04-06 17:05 | Emergency (ER) | payer BC ==
[~2020-04-06 17:05] MED LIST: Iopamidol-370 76% 500 ML 1 ML ONE
[2020-04-06] MEDS ORDERED: Ketorolac Tromethamine 30 MG/ML VIAL ONE (17:35)
[2020-04-06 17:36] LABS: #Eosinphils 0.1 thou/uL (0.0-0.7); #Monocytes 0.5 thou/uL (0.11-0.59); #Neutrophils 5.3 thou/uL (1.40-6.50); %Basophils 0.3 % (0.0-1.0); %Eosinophils 1.6 % (0.0-10.0); %Lymphocytes 33.8 % (21.0-51.0); %Monocytes 5.3 % (0.0-10.0); %Neutrophils 59.1 % (42.0-75.0); Hemoglobin 16.9 g/dL (12.0-16.0); Mean Corpuscular HGB CONC 35.4 g/dL (32.0-36.0); Mean Corpuscular Hemoglobin 32.5 pg (27.0-31.0); Mean Platelet Volume 7.2 fL (7.4-10.4); Platelet Count 278 thou/uL (130-400); RBC Distribution Width 12.7 % (11.5-14.5); Red Blood Cell (RBC) Count 5.18 mill/uL (4.20-5.40); White Blood Cell (WBC) Count 8.9 thou/uL (4.8-10.8)
[2020-04-06 17:39] LABS: Bilirubin Negative (Negative); Blood, Urine 1+ (Negative); Clarity Turbid (Clear); Glucose, Urine (Dipstick) Normal (Negative); Ketone, Urine Negative (Negative); Leukocyte 250 Leu/uL (Negative); Nitrite Negative (Negative); Protein, Urine (Dipstick) Negative (Neg-Trace); Specific Gravity, Urine 1.008 (1.002-1.036); Urobilinogen Normal mg/dL (Less than 2); pH, Urine 7.5 (5.0-9.0)
[2020-04-06 17:40] LABS: Bacteria/HPF 1+ HPF (None Seen)
[2020-04-06 17:50] LABS: Pregnancy Test - Urine (BHCG) Negative (Negative); Pregu Control Background? CLEAR/WHITE (CLR/WHITE); Pregu Control Bar Appear? YES (CONTROL BAR); Specific Gravity 1.008 (1.002-1.036)
[2020-04-06 17:56] LABS: ALT (SGPT) 24 U/L (8-55); AST (SGOT) 28 U/L (5-34); Albumin 4.1 g/dL (3.5-5.0); Alkaline Phosphatase 118 U/L (40-110); Anion Gap 14 mmol/L (10-20); BUN (Urea Nitrogen) 10 mg/dL (7.0-18.7); Bilirubin, Total 0.5 mg/dL (0.2-1.2); Calc. Creatinine Clearance 0 mL/min (70-130); Calcium 9.3 mg/dL (7.8-10.44); Carbon Dioxide 26 mmol/L (22-29); Chloride 102 mmol/L (98-107); Estimated GFR-MDRD 84; Globulin 4.2 g/dL (2.4-3.5); Glucose 93 mg/dL (70-105); Lipase 25 U/L (8-78); Potassium 3.1 mmol/L (3.5-5.1); Protein, Total 8.3 g/dL (6.0-8.3); Sodium 139 mmol/L (136-145)
--- NOTE | 2020-04-06 18:39 | CT ---
ABDOMEN AND PELVIC CT SCAN WITH IV CONTRAST: History: Left lower quadrant flank pain. FINDINGS: The lung bases appear clear. Visualized lungs appear clear. Small hiatal hernia. Liver, gallbladder, pancreas, spleen, and adrenal glands are unremarkable. Very small nonobstructing bilateral renal calc lisa. No evidence for acute obstruction or ureteral calculus. Scattered diverticulosis in the left colon and sigmoid colon. No CT evidence for acute appendicitis. Unremarkable appearing uterus and uri nary bladder. No abscess, adenopathy, or abnormal fluid collection. IMPRESSION: Very small nonobstructing bilateral renal calculi. No evidence for obstructing calculus. No other significant acute process. POS: [facility]
== END 2020-04-06 18:50 | disposition home or self-care (01) ==
LOC: ERS 17:05
DX: N39.0 Urinary tract infection, site not specified (principal); M81.0 Age-related osteoporosis without current pathological fracture; K90.0 Celiac disease; K76.0 Fatty (change of) liver, not elsewhere classified
CPT/HCPCS: 74177; 80053; 81003; 81015; 81025; 83690; 85025; 96374; J1885; Q9967

== ENCOUNTER 2020-12-30 | Emergency (ER) | payer BC | END 2020-12-30 20:31 | disposition home or self-care (01) ==

== ENCOUNTER 2021-05-15 09:06 | Emergency (ER) | payer BC | END 2021-05-15 11:12 | disposition home or self-care (01) | LOC: ERS 09:06 | DX: J01.90 Acute sinusitis, unspecified (principal); J20.9 Acute bronchitis, unspecified | CPT/HCPCS: 71045 ==

== ENCOUNTER 2023-04-06 13:25 | Outpatient (CLI) | payer BC | END 2023-04-06 13:26 | disposition home or self-care (01) | LOC: BICMAMMO 13:25 | PROVIDERS: ATTEND Family Medicine | DX: Z12.31 Encounter for screening mammogram for malignant neoplasm of breast (principal) | CPT/HCPCS: 77063; 77067 ==